=== PATIENT | female | born 1970 | race Caucasian/White ===

== ENCOUNTER 2018-12-07 12:17 | Inpatient (IN) ==
[2018-12-07] MEDS ORDERED: ONDANSETRON 4 MG/2 ML VIAL IV PRN (12:19)
[2018-12-07] MEDS ORDERED: ACETAMINOPHEN 325 MG TABLET PO PRN (12:19)
[2018-12-07] MEDS ORDERED: DICYCLOMINE 10 MG CAPSULE PO PRN (12:29)
[2018-12-07] MEDS ORDERED: LORazepam 2 MG/1 ML VIAL IV PRN (12:29)
[2018-12-07] MEDS ORDERED: THIAMINE INJ 100 MG, FOLIC ACID INJ 1 MG, MULTIVITAMIN INJ 10 ML in SODIUM CHLORIDE 0.9... IV ONE (14:00)
[2018-12-07 14:19] LABS: Basophils % 0.5 % (0.0-0.8); Eosinophils # 0.3 10*3/uL (0.0-0.87); Eosinophils % 3.4 % (0.00-10.9); Hematocrit 38.1 VOL% (35.7-47.0); Immature Granulocytes % 0.5 %; Immature Granulocytes Absolute 0.04 #; Lymphocytes # 2.1 10*3/uL (1.4-4.0); Lymphocytes % 29.1 % (21.3-54.2); Mean Corpuscular HGB Conc 31.5 GM/DL (32-36); Mean Corpuscular Volume 101.3 FL (87-102); Mean Platelet Volume 11.5 FL (9.6-12.0); Monocytes % 6.7 % (1.7-12.7); Neutrophils % 59.8 % (38.7-73.9); Platelet Count 191 T/CUMM (130-400); Red Blood Count 3.76 MC/CUMM (3.8-5.5); Red Cell Distribution Width 13.2 % (9.3-17.3); White Blood Count 7.3 T/CUMM (4-12)
[2018-12-07 14:42] LABS: Albumin 3.7 G/DL (3.4-5.0); Bilirubin,Total 0.4 MG/DL (0.2-1.0); Calcium 8.7 MG/DL (8.5-10.1); Osmolality,Calculated 280.7 MOS/KG (273-304); Total Protein 7.7 G/DL (6.4-8.3)
[2018-12-07] MEDS: GABAPENTIN 300 MG CAPSULE PO SCH ×2 (15:22→21:20)
[2018-12-07] MEDS: BUPRENORPHINE SL TAB 2 MG TABLET SL SCH ×2 (15:22→21:20)
[2018-12-07] MEDS: chlordiazePOXIDE 25 MG CAPSULE PO SCH ×2 (15:22→21:21)
[2018-12-07] MEDS: PANTOPRAZOLE 40 MG TABLET PO SCH (15:22)
[2018-12-07] MEDS: ENOXAPARIN 40 MG/0.4 ML SYRINGE SUBCUT SCH (15:31)
[2018-12-07] MEDS ORDERED: MAGNESIUM SULF RIDER 2 GM in PREMIX 1 EACH IV ONE (16:08)
[2018-12-07] MEDS ORDERED: GLUCAGON 1 MG VIAL IM PRN (16:08)
[2018-12-07] MEDS ORDERED: DEXTROSE 50% 25 GM/50 ML VIAL IV PRN (16:08)
[2018-12-07] MEDS: INSULIN LISPRO 100 UNIT/ML SUBCUT SCH ×2 (17:19→21:27)
[2018-12-07] MEDS: rOPINIRole 1 MG TABLET PO PRN (18:55)
[2018-12-07] MEDS: PROMETHAZINE 25 MG/1 ML VIAL IM PRN (20:10)
[2018-12-07] MEDS: HydrOXYzine PAMOATE 25 MG CAPSULE PO PRN (21:20)
[2018-12-07] MEDS: carvediloL 12.5 MG TABLET PO SCH (21:20)
[2018-12-08] MEDS: cloNIDine 0.1 MG TABLET PO PRN (00:43)
[2018-12-08] MEDS: chlordiazePOXIDE 25 MG CAPSULE PO SCH ×3 (03:26→16:58)
[2018-12-08] MEDS: GABAPENTIN 300 MG CAPSULE PO SCH ×3 (03:30→20:29)
[2018-12-08] MEDS: BUPRENORPHINE SL TAB 2 MG TABLET SL SCH ×3 (03:30→20:28)
[2018-12-08] MEDS: HydrOXYzine PAMOATE 25 MG CAPSULE PO PRN ×2 (06:06→20:30)
[2018-12-08 06:18] LABS: Calcium 8.3 MG/DL (8.5-10.1)
[2018-12-08 06:23] LABS: Risk Ratio 3.43; VLDL CHOLESTEROL 35.4 MG/DL
[2018-12-08] MEDS: rOPINIRole 1 MG TABLET PO PRN ×2 (07:18→20:30)
[2018-12-08] MEDS: INSULIN LISPRO 100 UNIT/ML SUBCUT SCH ×4 (08:23→21:04)
[2018-12-08] MEDS ORDERED: chlordiazePOXIDE 25 MG CAPSULE PO SCH (09:00)
[2018-12-08] MEDS: carvediloL 12.5 MG TABLET PO SCH ×2 (09:15→20:30)
[2018-12-08] MEDS: PANTOPRAZOLE 40 MG TABLET PO SCH (09:15)
[2018-12-08] MEDS: PROMETHAZINE 25 MG/1 ML VIAL IM PRN ×2 (09:15→22:23)
[2018-12-08] MEDS: FLUTICASONE 50 MCG NASAL SPRAY 16 GM BOTTLE BOTH NARES SCH ×2 (09:34→21:05)
[2018-12-08] MEDS: CEFUROXIME 500 MG TABLET PO SCH ×2 (09:35→20:29)
[2018-12-08] MEDS: ENOXAPARIN 40 MG/0.4 ML SYRINGE SUBCUT SCH (16:57)
[2018-12-09] MEDS: chlordiazePOXIDE 25 MG CAPSULE PO SCH ×4 (01:08→23:50)
[2018-12-09] MEDS: METHOCARBAMOL 750 MG TABLET PO PRN (04:24)
[2018-12-09] MEDS: GABAPENTIN 300 MG CAPSULE PO SCH ×3 (04:24→21:00)
[2018-12-09] MEDS: BUPRENORPHINE SL TAB 2 MG TABLET SL SCH ×3 (04:24→23:50)
[2018-12-09] MEDS: INSULIN LISPRO 100 UNIT/ML SUBCUT SCH ×5 (06:51→22:15)
[2018-12-09] MEDS: PANTOPRAZOLE 40 MG TABLET PO SCH (08:25)
[2018-12-09] MEDS: CEFUROXIME 500 MG TABLET PO SCH ×2 (08:25→20:59)
[2018-12-09] MEDS: carvediloL 12.5 MG TABLET PO SCH ×2 (08:25→20:59)
[2018-12-09] MEDS: FLUTICASONE 50 MCG NASAL SPRAY 16 GM BOTTLE BOTH NARES SCH ×2 (08:28→21:01)
[2018-12-09] MEDS: PROMETHAZINE INJ 25 MG in SODIUM CHLORIDE 0.9% 50 ML IV PRN ×2 (11:58→21:04)
[2018-12-09] MEDS: IBUPROFEN 800 MG TABLET PO PRN (11:59)
[2018-12-09] MEDS: ENOXAPARIN 40 MG/0.4 ML SYRINGE SUBCUT SCH (15:56)
[2018-12-09] MEDS: traZODone 50 MG TABLET PO PRN (21:00)
[2018-12-09] MEDS: HydrOXYzine PAMOATE 25 MG CAPSULE PO PRN (21:00)
[2018-12-09] MEDS: rOPINIRole 1 MG TABLET PO PRN (21:00)
[2018-12-10] MEDS: GABAPENTIN 300 MG CAPSULE PO SCH ×3 (04:51→21:37)
[2018-12-10] MEDS: chlordiazePOXIDE 25 MG CAPSULE PO SCH ×3 (04:51→17:42)
[2018-12-10] MEDS: PANTOPRAZOLE 40 MG TABLET PO SCH (08:40)
[2018-12-10] MEDS: carvediloL 12.5 MG TABLET PO SCH ×2 (08:40→21:37)
[2018-12-10] MEDS: CEFUROXIME 500 MG TABLET PO SCH ×2 (08:40→21:37)
[2018-12-10] MEDS: FLUTICASONE 50 MCG NASAL SPRAY 16 GM BOTTLE BOTH NARES SCH ×2 (08:44→21:00)
[2018-12-10] MEDS: INSULIN LISPRO 100 UNIT/ML SUBCUT SCH ×3 (09:06→16:23)
[2018-12-10] MEDS: PROMETHAZINE INJ 25 MG in SODIUM CHLORIDE 0.9% 50 ML IV PRN (10:07)
[2018-12-10] MEDS ORDERED: PROMETHAZINE 25 MG TABLET PO PRN (10:34)
[2018-12-10] MEDS ORDERED: SCOPOLAMINE 1.5 MG PATCH TRANSDERM ONE (10:51)
[2018-12-10] MEDS: METHOCARBAMOL 750 MG TABLET PO PRN ×2 (11:47→21:33)
[2018-12-10] MEDS: HydrOXYzine PAMOATE 25 MG CAPSULE PO PRN ×2 (11:47→21:36)
[2018-12-10] MEDS: IBUPROFEN 800 MG TABLET PO PRN ×2 (14:17→21:38)
[2018-12-10] MEDS: rOPINIRole 1 MG TABLET PO PRN (14:17)
[2018-12-10] MEDS: ENOXAPARIN 40 MG/0.4 ML SYRINGE SUBCUT SCH (14:18)
[2018-12-10] MEDS: cloNIDine 0.1 MG TABLET PO PRN ×2 (17:42→21:45)
[2018-12-10] MEDS: traZODone 50 MG TABLET PO PRN (21:38)
[2018-12-11 04:55] LABS: Basophils % 0.6 % (0.0-0.8); Eosinophils # 0.2 10*3/uL (0.0-0.87); Eosinophils % 3.6 % (0.00-10.9); Hematocrit 32.2 VOL% (35.7-47.0); Hemoglobin 10.1 GM/DL (12.0-16.0); Immature Granulocytes % 0.4 %; Immature Granulocytes Absolute 0.02 #; Lymphocytes # 2.6 10*3/uL (1.4-4.0); Lymphocytes % 51.4 % (21.3-54.2); Mean Corpuscular HGB Conc 31.4 GM/DL (32-36); Mean Corpuscular Volume 102.5 FL (87-102); Mean Platelet Volume 12.7 FL (9.6-12.0); Monocytes % 7.2 % (1.7-12.7); Neutrophils % 36.8 % (38.7-73.9); Platelet Count 155 T/CUMM (130-400); Red Blood Count 3.14 MC/CUMM (3.8-5.5); Red Cell Distribution Width 12.9 % (9.3-17.3)
[2018-12-11 06:12] LABS: Band Neutrophils 1 % (0-10); Eosinophils 1 % (0-10); Lymphocytes 29 % (20-55); Polychromasia Few; Segmented Neutrophils 65 % (50-85); Total Cells Counted 100
[2018-12-11 06:13] LABS: Platelet Estimate Decreased
[2018-12-11] MEDS: chlordiazePOXIDE 25 MG CAPSULE PO SCH (07:22)
[2018-12-11] MEDS: INSULIN LISPRO 100 UNIT/ML SUBCUT SCH ×2 (07:22→09:13)
[2018-12-11] MEDS: GABAPENTIN 300 MG CAPSULE PO SCH (07:22)
[2018-12-11 08:21] VITALS: BP 114/76
[2018-12-11] MEDS: PANTOPRAZOLE 40 MG TABLET PO SCH (09:18)
[2018-12-11] MEDS: CEFUROXIME 500 MG TABLET PO SCH (09:18)
[2018-12-11] MEDS: carvediloL 12.5 MG TABLET PO SCH (09:18)
[2018-12-11] MEDS: FLUTICASONE 50 MCG NASAL SPRAY 16 GM BOTTLE BOTH NARES SCH (09:19)
[2018-12-11] MEDS: METHOCARBAMOL 750 MG TABLET PO PRN (09:24)
[2018-12-11] MEDS: cloNIDine 0.1 MG TABLET PO PRN (09:24)
== END 2018-12-11 10:55 | disposition home or self-care (01) | DRG 897 ==
LOC: N.4E 13:14 → SUATTDRO 13:14
PROVIDERS: ADMIT Family Medicine; ATTEND Internal Medicine